=== PATIENT | female | born 1980 | race Caucasian/White ===

== ENCOUNTER 2016-05-09 18:19 | Emergency (ER) | payer OTHER ==
[2016-05-09] MEDS ORDERED: LIDOCAINE 2% 10 ML MDV ONE (18:33)
[2016-05-09] MEDS ORDERED: SODIUM BICARBONATE ABBOJECT 50 MEQ/50 ML SYRINGE ONE (18:33)
[2016-05-09] MEDS ORDERED: AMOX/CLAV 875 MG/125 MG TABLET PO STA (18:39)
[2016-05-09] MEDS ORDERED: AMOX/CLAV 875 MG/125 MG TABLET PO ONE (18:41)
== END 2016-05-09 19:02 | disposition home or self-care (01) ==
DX: H61.002 Unspecified perichondritis of left external ear (principal); R03.0 Elevated blood-pressure reading, without diagnosis of hypertension
CPT/HCPCS: 64450; 99283; A9270